=== PATIENT | female | born 1995 | race Caucasian/White ===

== ENCOUNTER 2016-12-07 19:08 | Emergency (ER) | payer MEDICAID ==
[2016-12-07 19:33] VITALS: BP 123/52
[2016-12-07] MEDS ORDERED: Acetaminophen/HYDROcodone 325-5 MG Tab PO ONE (20:39)
--- NOTE | 2016-12-07 20:47 | EDM.PDOC ---
ED HPI GENERAL MEDICAL PROBLEM - General Chief Complaint: ENT Problem Stated Complaint: DRY COUGH CANT HEAR Time Seen by Provider: 12/07/16 20:40 Source of Information: Reports: Patient, Family History Limitations: Reports: No Limitations - History of Present Illness INITIAL COMMENTS - FREE TEXT/NARRATIVE: pt has pain in her rt ear and she has had a cough. She hs not had a fever. The ear pain started about 2 days ago. Onset: Gradual Duration: Day(s): Location: Reports: Chest Associated Symptoms: Reports: Cough, Other (pt has giovanni raising some sputumi) Bilateral Ear Pain Score (Numeric/FACES): 8 - Related Data Allergies Allergy/AdvReac Type Severity Reaction Status Date / Time No Known Allergies Allergy Verified 12/07/16 19:33 Past Medical History Cardiovascular History: Reports: Other (See Below) Other Cardiovascular History: "slow blood vessel" Respiratory History: Reports: Asthma Musculoskeletal History: Reports: Fracture Psychiatric History: Reports: ADD, ADHD, Anxiety, Bipolar, Panic Attack, Suicide Attempt Social & Family History - Tobacco Use Smoking Status *Q: Unknown Ever Smoked Years of Tobacco use: 2 Packs/Tins Daily: 0.1 - Recreational Drug Use Recreational Drug Use: No ED ROS ENT - Review of Systems Review Of Systems: See Below Constitutional: Reports: No Symptoms HEENT: Reports: Ear Pain Respiratory: Reports: Cough, Sputum Cardiovascular: Reports: No Symptoms Endocrine: Reports: No Symptoms GI/Abdominal: Reports: No Symptoms : Reports: No Symptoms ED EXAM, ENT - Physical Exam Exam: See Below Text/Narrative:: pt arives with ear pain in the rt ear and a cough/ Exam Limited By: No Limitations General Appearance: Alert, Mild Distress Ears: Other ( rt drum is red and has fluid behind it. ) Nose: Normal Inspection Mouth/Throat: Normal Inspection Head: Atraumatic Respiratory/Chest: No Respiratory Distress, Rhonchi, Other (pt has a few rhonchi in the lower lung [place]. ) Cardiovascular: Regular Rate, Rhythm GI/Abdominal: Soft, Non-Tender (Female) Exam: Deferred Rectal (Female) Exam: Deferred Back: Normal Inspection Course - Vital Signs Last Recorded V/S: Last Vital Signs Temp 36.2 C 12/07/16 19:18 Pulse 103 H 12/07/16 19:18 Resp 15 12/07/16 19:18 BP 123/52 L 12/07/16 19:18 Pulse Ox 96 12/07/16 19:18 - Orders/Labs/Meds Orders: Active Orders 24 hr Category Date Time Status Acetaminophen/HYDROcodone [[place] 325-5 MG] Med 12/07/16 20:39 Once 1 tab PO ONETIME ONE Medication Orders Hydrocodone Bitart/Acetaminophen ([place] 325-5 Mg) 1 tab PO ONETIME ONE Stop: 12/07/16 20:40 Meds: Medications Generic Name Dose Route Start Last Admin Trade Name Freq PRN Reason Stop Dose Admin Hydrocodone Bitart/Acetaminophen 1 tab 12/07/16 20:39 [place] 325-5 Mg PO 12/07/16 20:40 ONETIME ONE Departure - Departure Time of Disposition: 20:50 Disposition: Home, Self-Care 01 Condition: Fair Clinical Impression: Otitis media, right - Discharge Information Referrals: Angelina Musa MD [Primary Care Provider] - Care Plan Goals: motrin 600mg q6h prn for pain, augmentin 875 twice daily for 10 days, appt with regular Dr in 10 days to recheck the ear. While on the antibiotic use yogurt or a probiotic. - My Orders Last 24 Hours: My Active Orders 12/07/16 20:39 Acetaminophen/HYDROcodone [[place] 325-5 MG] 1 tab PO ONETIME ONE - Assessment/Plan Last 24 Hours: My Active Orders 12/07/16 20:39 Acetaminophen/HYDROcodone [[place] 325-5 MG] 1 tab PO ONETIME ONE
== END 2016-12-07 21:02 | disposition home or self-care (01) ==
LOC: JP.ED 19:08
DX: H92.01 Otalgia, right ear (principal); J45.909 Unspecified asthma, uncomplicated
CPT/HCPCS: 99283; A9270

== ENCOUNTER 2020-09-25 13:18 | Emergency (ER) | payer MEDICAID ==
[2020-09-25 13:27] VITALS: BP 125/75; PULSE 92
--- NOTE | 2020-09-25 14:03 | EDM.PDOC ---
ED HPI GENERAL MEDICAL PROBLEM - General Chief Complaint: Bite:Animal, Insect Stated Complaint: MEDICAL [facility] Time Seen by Provider: 09/25/20 13:28 Source of Information: Reports: Patient History Limitations: Reports: No Limitations - History of Present Illness INITIAL COMMENTS - FREE TEXT/NARRATIVE: 25 you female presents via EMS following a bee sting to her right shoulder. Pt states she is allergic to be stings and self administered 2 doses of auto inject epinephrine. EMS gave 50 mg of Benadryl and 500 cc NS. She has no complaints currently Chest Pain Score (Numeric/FACES): 9 - Related Data Allergies Allergy/AdvReac Type Severity Reaction Status Date / Time No Known Allergies Allergy Verified 09/25/20 13:33 Home Meds: Home Meds Albuterol Sulfate [Albuterol Sulfate Hfa] 8.5 gm IH ASDIRECTED PRN 09/25/20 [History] Clindamycin HCl 300 mg PO DAILY 09/25/20 [History] Insulin Glarg,Human.Rec.Analog [Lantus Solostar] 30 units SQ BEDTIME 09/25/20 [History] Naproxen 500 mg PO ATDISCHARGE 09/25/20 [History] Omeprazole 20 mg PO DAILY 09/25/20 [History] Sertraline [Zoloft] 100 mg PO DAILY 09/25/20 [History] hydrOXYzine HCL [hydrOXYzine] 25 mg PO DAILY 09/25/20 [History] Past Medical History Cardiovascular History: Reports: Other (See Below) Other Cardiovascular History: "slow blood vessel" Respiratory History: Reports: Asthma Musculoskeletal History: Reports: Fracture Psychiatric History: Reports: ADD, ADHD, Anxiety, Bipolar, Panic Attack, Suicide Attempt Endocrine/Metabolic History: Reports: Diabetes, Type II - Infectious Disease History Infectious Disease History: Reports: None Social & Family History - Tobacco Use Tobacco Use Status *Q: Never Tobacco User - Caffeine Use Caffeine Use: Reports: Soda - Recreational Drug Use Recreational Drug Use: No ED ROS GENERAL - Review of Systems Review Of Systems: See Below Constitutional: Denies: Chills Respiratory: Denies: Shortness of Breath, Wheezing Cardiovascular: Denies: Chest Pain ED EXAM, ANIMAL BITE - Physical Exam Exam: See Below Exam Limited By: No Limitations General Appearance: Alert, WD/WN, No Apparent Distress Head: Atraumatic, Normocephalic Neck: Normal Inspection, Supple, Non-Tender, Full Range of Motion. No: Lymphadenopathy (R), Lymphadenopathy (L) Respiratory/Chest: No Respiratory Distress, Lungs Clear, Normal Breath Sounds. No: Crackles, Rhonchi, Wheezing Cardiovascular: Normal Peripheral Pulses, Regular Rate, Rhythm Skin Exam: Normal Color, Warm/Dry, Other (no local reaction to area of sting) Course - Vital Signs Last Recorded V/S: Last Vital Signs Temp 36.4 C 09/25/20 13:30 Pulse 92 09/25/20 13:30 Resp 18 09/25/20 13:30 BP 125/75 09/25/20 13:30 Pulse Ox 98 09/25/20 13:30 Departure - Departure Time of Disposition: 14:30 Disposition: Home, Self-Care 01 Condition: Good Clinical Impression: Bee sting - Discharge Information *PRESCRIPTION DRUG MONITORING PROGRAM REVIEWED*: Not Applicable *COPY OF PRESCRIPTION DRUG MONITORING REPORT IN PATIENT ANNE MARIE: Not Applicable Instructions: Insect Bite, Adult, [id number] Referrals: PCP,None [Primary Care Provider] - Additional Instructions: rest fluid intake Sepsis Event Note (ED) - Evaluation Sepsis Screening Result: No Definite Risk - Focused Exam Vital Signs: Vital Signs Temp Pulse Resp BP Pulse Ox 09/25/20 13:30 36.4 C 92 18 125/75 98 09/25/20 13:25 36.4 C 92 18 125/75 98
== END 2020-09-25 14:57 | disposition home or self-care (01) ==
LOC: JP.ED 13:18
DX: T63.441A Toxic effect of venom of bees, accidental (unintentional), initial encounter (principal); E11.9 Type 2 diabetes mellitus without complications; Z79.4 Long term (current) use of insulin; Z79.899 Other long term (current) drug therapy
CPT/HCPCS: 99283